=== PATIENT | male | born 1975 | race Hispanic/Latino ===

== ENCOUNTER 2024-07-24 11:19 | Emergency (ER) | payer BC, SELFPAY ==
[2024-07-24 11:31] VITALS: BP 153/83; PULSE 72; RESP 20; TEMP 37; O2SAT 100; BMI 31.0
--- NOTE | 2024-07-24 11:43 | PC.NURSE ---
Pt arrived to ED with because he has been detoxing from fentanyl for the last 48 hours. Pt states that he has used fentanyl off an on for 4 years and has detoxed before. C/o leg pain, cramps and shaking and states that he did not feel like this the last time he detoxed from opiates. Denies n/v, [place], SOB, CP. Pt tearful and states that he wants to get right. Denies using any other substances besides fentanyl. Pt also states that he does not want to use methadone or suboxone because he does not want to have to ween off of it. Pt is unsure if he would like to go to an inpatient detox center.
--- NOTE | 2024-07-24 11:55 | ED_ITS ---
HPI - Overdose General Chief Complaint: Toxicology Problem Stated Complaint: detox Time Seen by Provider: 07/24/24 11:20 Source: patient and family Mode of arrival: Wheelchair History of Present Illness HPI Narrative: 48-year-old male with history of opiate use disorder presents with restless legs, detoxing from fentanyl. Last use 2 days ago. Patient states that he was here today to see if anything can be done to help his legs stop moving. He states that he was not interested in Suboxone or methadone. He was not interested in going to inpatient detox. He was here today because he can not sleep due to his persistently restless legs. Seen several years ago at [facility] for same, per patient's online MyChart he was given ropinirole, which his states did not help him. Related Data Previous Rx's Medication Instructions Recorded baclofen 20 mg tablet 20 mg PO TID #30 tabs 07/24/24 clonidine HCl 0.2 mg tablet 0.2 mg PO BID PRN withdrawal 07/24/24 symptoms #30 tabs Patient History Social History Smoking Status: Former smoker Smoking Status: Former smoker alcohol intake frequency: 0-2 drinks per day Substance Use Type: opiates Exam Initial Vital Signs Initial Vital Signs: Vital Signs Temperature 98.6 F 07/24/24 11:31 Pulse Rate 72 07/24/24 11:31 Respiratory Rate 20 07/24/24 11:31 Blood Pressure 153/83 H 07/24/24 11:31 Pulse Oximetry 100 07/24/24 11:31 Oxygen Delivery Method Room Air 07/24/24 11:31 Const: Awake, alert, anxious, agitated Cardiac: regular rate, regular rhythm RESP: unlabored, clear bilaterally, no wheezing MSK: Atraumatic, full range of motion, pulses equal Skin: Warm, Dry, intact, no rashes Neuro: AO x3, CN II-XII grossly intact, moves all extremities Course Orders Ordered: ED Orders 07/24/24 11:45 Consult to AUDIO VISUAL PRODUCTION SPECIALIST - Exercise Physiologist Stat 07/24/24 12:24 CBC Auto Diff [Complete Blood Count AUTO DIFF] Stat CMP [Comprehensive Metabolic Panel] Stat Discontinued Medications Baclofen (Baclofen 10 Mg Tablet) 20 mg PO NOW ONE Stop: 07/24/24 11:56 Last Admin: 07/24/24 12:02 Dose: 20 mg Documented By: MAIKEL Clonidine HCl (Clonidine 0.1 Mg Tablet) 0.2 mg PO NOW ONE Stop: 07/24/24 11:56 Last Admin: 07/24/24 12:03 Dose: 0.2 mg Documented By: MAIKEL Diazepam (Diazepam 10 Mg/2 Ml Syringe) 2 mg IV NOW ONE Stop: 07/24/24 12:26 Last Admin: 07/24/24 12:32 Dose: 2 mg Documented By: MPO Diphenhydramine HCl (Diphenhydramine 50 Mg/Ml Vial) 50 mg IV NOW ONE Stop: 07/24/24 12:18 Last Admin: 07/24/24 12:31 Dose: Not Given Documented By: MAIKEL Droperidol (Droperidol 5 Mg/2 Ml Vial) 2.5 mg IV NOW ONE Stop: 07/24/24 13:15 Last Admin: 07/24/24 13:18 Dose: 2.5 mg Documented By: NATACHA Vital Signs Vital signs: Vital Signs - 8 hr 07/24/24 11:31 07/24/24 12:03 Temperature 98.6 F Pulse Rate 72 72 Respiratory Rate 20 Blood Pressure 153/83 H 153/83 H Pulse Oximetry 100 Oxygen Delivery Method Room Air MDM - Overdose Lab Data 07/24/24 12:24 07/24/24 12:24 Labs: Lab Results 07/24/24 Range/Units 12:24 WBC 8.5 (4.5-11.0) X10^3/uL RBC 5.14 (4.5-5.9) X10^6/uL Hgb 14.6 (13.5-17.5) g/dL Hct 43.4 (41-53) % MCV 84.4 (80-100) fL MCH 28.5 (26-34) PG MCHC 33.7 (30-36) % RDW 14.3 (11.6-14.8) % Plt Count 260 (150-400) X10^3/uL Neut % (Auto) 74.7 (50-75) % Lymph % (Auto) 18.1 L (25-40) % [place] % (Auto) 4.1 (3-14) % Eos % (Auto) 2.6 (2-4) % Baso % (Auto) 0.5 (0-2) % Neut # (Auto) 6300 (7354-4974) /uL Lymph # (Auto) 1500 (3730-4367) /uL [place] # (Auto) 300 (0-900) /uL Eos # (Auto) 200 (0-450) /uL Baso # (Auto) 0 (0-100) /uL Sodium 140 (137-145) mmol/L Potassium 3.9 (3.4-5.1) mmol/L Chloride 109 H (98-107) mmol/L Carbon Dioxide 21 L (22-32) mmol/L BUN 12 (9-20) mg/dL Creatinine 0.80 (0.66-1.25) mg/dL Estimated GFR > 60 (>60) mL/min BUN/Creatinine Ratio 15.0 (6-22) Glucose 114 H (70-100) mg/dL Calcium 9.6 (8.4-10.2) mg/dL Total Bilirubin 0.8 (0.2-1.3) mg/dL AST 24 (17-59) IU/L ALT 26 (<50) IU/L Alkaline Phosphatase 80 (38-126) U/L Total Protein 8.1 (6.3-8.2) g/dL Albumin 4.5 (3.5-5.0) g/dL Globulin 3.6 (1.7-4.1) g/dL Albumin/Globulin Ratio 1.3 (1.0-2.8) MDM Narrative Medical decision making narrative: Patient with restless legs following fentanyl withdrawal. Declining Suboxone or methadone, declining inpatient detox. He appears to be quite agitated with very restless legs, unable to sit still. Baclofen and clonidine ordered. Patient still complaining of restless legs after baclofen and clonidine administration. Laboratory work and Benadryl ordered, in order to check electrolytes. Patient declined Benadryl stating that he has a paradoxical reaction with the Benadryl. Valium ordered. No improvement with Valium. Order droperidol to see if this helps his symptoms. No improvement with droperidol. Patient requesting to leave. He again declined Suboxone, methadone, inpatient detox. He was given outpatient detox resources, baclofen and clonidine sent to pharmacy of choice. Naloxone at Discharge Meets criteria for naloxone at discharge?: No Discharge Plan Departure Patient Disposition: Home Clinical Impression: Opiate withdrawal Instructions: DI for Drug or Alcohol Withdrawal Activity Restrictions/Additional Instructions: Use the detox referral sheet for local resources. Talk to your doctor if you would like to try suboxone or methadone again Prescriptions: New baclofen 20 mg tablet 20 mg PO TID Qty: 30 0RF clonidine HCl 0.2 mg tablet 0.2 mg PO BID PRN (Reason: withdrawal symptoms) Qty: 30 0RF Stand Alone Forms: Patient Portal/API
[2024-07-24] MEDS: BACLOFEN 10 MG TABLET 20 MG PO (12:02)
[2024-07-24 12:03] VITALS: BP 153/83; PULSE 72
[2024-07-24] MEDS: cloNIDine 0.1 MG TABLET 0.2 MG PO (12:03)
[2024-07-24 12:31] LABS: Add Manual Diff / Slide Review NO; Basophils Absolute Auto 0 /uL (0-100); Basophils Percent Auto 0.5 % (0-2); Eosinophils Absolute Auto 200 /uL (0-450); Eosinophils Percent Auto 2.6 % (2-4); Hematocrit 43.4 % (41-53); Hemoglobin 14.6 g/dL (13.5-17.5); Lymphocytes Absolute Auto 1500 /uL (1100-4500); Lymphocytes Percent Auto 18.1 % (25-40); Mean Corpuscular HGB Conc 33.7 % (30-36); Mean Corpuscular Hemoglobin 28.5 PG (26-34); Mean Corpuscular Volume 84.4 fL (80-100); Monocytes Absolute Auto 300 /uL (0-900); Monocytes Percent Auto 4.1 % (3-14); Neutrophils Absolute Auto 6300 /uL (1500-7000); Neutrophils Percent Auto 74.7 % (50-75); Platelet Count 260 X10^3/uL (150-400); Red Blood Cell Count 5.14 X10^6/uL (4.5-5.9); Red Cell Distribution Width 14.3 % (11.6-14.8); White Blood Cell Count 8.5 X10^3/uL (4.5-11.0)
[2024-07-24] MEDS: diazePAM 10 MG/2 ML SYRINGE 2 MG IV (12:32)
[2024-07-24 12:47] LABS: Alanine Aminotransferase 26 IU/L (<50); Albumin 4.5 g/dL (3.5-5.0); Albumin Globulin Ratio 1.3 (1.0-2.8); Alkaline Phosphatase 80 U/L (38-126); Aspartate Aminotransferase 24 IU/L (17-59); Bilirubin Total 0.8 mg/dL (0.2-1.3); Blood Urea Nitrogen 12 mg/dL (9-20); Calcium 9.6 mg/dL (8.4-10.2); Carbon Dioxide 21 mmol/L (22-32); Chloride 109 mmol/L (98-107); Estimated Glomerular Filt Rate > 60 mL/min (>60); Globulin 3.6 g/dL (1.7-4.1); Glucose 114 mg/dL (70-100); HEMOLYSIS < 15 (0-50); Potassium 3.9 mmol/L (3.4-5.1); Sodium 140 mmol/L (137-145); Total Protein 8.1 g/dL (6.3-8.2)
[2024-07-24] MEDS: DROPERIDOL 5 MG/2 ML VIAL 2.5 MG IV (13:18)
== END 2024-07-24 13:49 | disposition home or self-care (01) ==
PROVIDERS: Emergency Provider Emergency Medicine
DX: F11.93 Opioid use, unspecified with withdrawal (principal)
CPT/HCPCS: 36415; 80053; 85025; 96374; 96375; 99284; J1790; J3360